=== PATIENT | male | born 1990 | race Caucasian/White ===

== ENCOUNTER 2018-08-29 10:52 | Inpatient (IN) | payer BC ==
[2018-08-29] MEDS ORDERED: Nicotine Inhaler* 10 MG AMP INH PRN (11:51)
[2018-08-29 12:12] LABS: ABS Basophils 0 10^3/ul (0-0.2); ABS Eosinophils 0 10^3/ul (0-0.6); ABS Lymphocytes 2.5 10^3/ul (1.0-4.8); ABS Monocytes 0.4 10^3/ul (0-0.8); ABS Neutrophils 4.4 10^3/ul (1.5-7.7); ABS Nucleated RBC 0 10^3/ul; Eosinophil % 0.2 %; Hematocrit 45 % (42-52); Hemoglobin 15.8 g/dl (14.0-18.0); Lymphocyte % 33.6 %; Mean Corpuscular HGB Conc 35 g/dl (31-36); Mean Corpuscular Hemoglobin 29 pg (27-31); Mean Corpuscular Volume 84 fL (80-94); Mean Platelet Volume 8.2 fL (7.4-10.4); Nucleated Red Blood Cells % 0.1; Platelet Count 269 10^3/ul (150-450); Red Blood Count 5.42 10^6/ul (4.00-5.40); Red Cell Distribution Width 13 % (10.5-15); White Blood Count 7.4 10^3/ul (3.5-10.8)
[2018-08-29 12:40] LABS: ALT 50 U/L (7-52); AST 46 U/L (13-39); Albumin 4.5 g/dL (3.2-5.2); Albumin/Globulin Ratio 1.8 (1-3); Alkaline Phosphatase 124 U/L (34-104); Anion Gap 7 mmol/L (2-11); BUN/Creatinine Ratio 24.7 (8-20); Blood Urea Nitrogen 18 mg/dL (6-24); CO2 Carbon Dioxide 29 mmol/L (22-32); Calcium 9.3 mg/dL (8.6-10.3); Chloride 102 mmol/L (101-111); EGFR African American 155.9 (>60); EGFR Non-African American 128.9 (>60); Globulin 2.5 g/dL (2-4); Glucose 120 mg/dL (70-100); Potassium 3.6 mmol/L (3.5-5.0); Sodium 138 mmol/L (135-145)
[2018-08-29 12:40] LABS: Urine Appearance Clear; Urine Bilirubin Negative (Negative); Urine Blood Negative (Negative); Urine Color Yellow; Urine Glucose Negative (Negative); Urine Ketones Trace (Negative); Urine Nitrite Negative (Negative); Urine Protein Negative (Negative); Urine Specific Gravity 1.019 (1.010-1.030); Urine Urobilinogen Negative (Negative)
[2018-08-29 12:43] LABS: Acetaminophen < 15 mcg/mL; Alcohol < 10 mg/dL (<10); Salicylate < 2.50 mg/dL (<30)
--- NOTE | 2018-08-29 12:46 | ED ---
Psychiatric Complaint - HPI Summary HPI Summary: A 27 y/o male accompanied by a coworker presents to [facility] with a chief complaint of anxiety today. He reports that it is hard to stay positive because he is feeling hypersensitive to negative emotions. He came to the ED for a MHE. He reports that he just want to be able to relax. He denies SI, HI or hallucinations. He reports that when he was younger he had a learning disability and was kicked out of high school multiple times for fighting. He reports that he has not been able to sleep much. He reports a FHx of cardiac disease. - History Of Current Complaint Chief Complaint: EDPsychosocial Time Seen by Provider: 08/29/18 11:38 Hx Obtained From: Patient, Other: - coworker Onset/Duration: Sudden Onset, Lasting Hours, Still Present Timing: Hours Severity Initially: Mild Severity Currently: Mild Character: Manic Aggravating Factor(s): Nothing Alleviating Factor(s): Nothing Associated Signs And Symptoms: Positive: Sleep Disturbance. Negative: Hostile Has Suicidal: Denies: Thoughts Has Homicidal: Denies: Thoughts - Allergies/Home Medications Allergies/Adverse Reactions: Allergies Allergy/AdvReac Type Severity Reaction Status Date / Time No Known Allergies Allergy Verified 08/29/18 11:08 Home Medications: Home Medications NK [No Home Medications Reported] 08/29/18 [History Confirmed 08/29/18] PMH/Surg Hx/FS Hx/Imm Hx Sensory History: Denies: Hx Deafness Psychiatric History: Reports: Hx Anxiety Infectious Disease History: No Infectious Disease History: Denies: Traveled Outside the [place] in Last 30 Days - Family History Known Family History: Positive: Cardiac Disease - Social History Alcohol Use: Occasionally Substance Use Type: Reports: Marijuana Smoking Status (MU): Never Smoked Tobacco Review of Systems Negative: Fever Psychological: Other - negative: SI, HI Positive: Anxious All Other Systems Reviewed And Are Negative: Yes Physical Exam - Summary Physical Exam Summary: GENERAL: Patient is a well-developed and nourished M who is lying comfortable in the stretcher. Patient is not in any acute respiratory distress. HEAD AND FACE: Normocephalic EYES: PERRLA, EOMI x 2. EARS: Hearing grossly intact. MOUTH: Oropharynx within normal limits. NECK: Supple, trachea is midline, no adenopathy, no JVD, no carotid bruit. CHEST: Symmetric, no tenderness at palpation LUNGS: Clear to auscultation bilaterally. No wheezing or crackles. CVS: Regular rate and rhythm, S1 and S2 present, no murmurs or gallops appreciated. ABDOMEN: Soft, non-tender. Bowel sounds are normal. No abdominal abnormal pulsations. EXTREMITIES: Full ROM in all major joints, no edema, no cyanosis or clubbing. NEURO: Alert and oriented x 3. No acute neurological deficits. Speech is normal and follows commands. SKIN: Dry and warm Psych: Racing thoughts, No SI or HI. Triage Information Reviewed: Yes Vital Signs On Initial Exam: Initial Vitals Temp Pulse Resp BP Pulse Ox 97.8 F 78 18 172/110 98 08/29/18 11:04 08/29/18 11:04 08/29/18 11:04 08/29/18 11:04 08/29/18 11:04 Vital Signs Reviewed: Yes Diagnostics - Vital Signs Vital Signs Temp Pulse Resp BP Pulse Ox 08/29/18 11:04 97.8 F 78 18 172/110 98 - Laboratory Lab Results: Lab Results 08/29/18 08/29/18 08/29/18 Range/Units 11:57 11:57 12:17 WBC 7.4 (3.5-10.8) 10^3/ul RBC 5.42 H (4.00-5.40) 10^6/ul Hgb 15.8 (14.0-18.0) g/dl Hct 45 (42-52) % MCV 84 (80-94) fL MCH 29 (27-31) pg MCHC 35 (31-36) g/dl RDW 13 (10.5-15) % Plt Count 269 (150-450) 10^3/ul MPV 8.2 (7.4-10.4) fL Neut % (Auto) 60.1 % Lymph % (Auto) 33.6 % [place] % (Auto) 5.7 % Eos % (Auto) 0.2 % Baso % (Auto) 0.4 % Absolute Neuts (auto) 4.4 (1.5-7.7) 10^3/ul Absolute Lymphs (auto) 2.5 (1.0-4.8) 10^3/ul Absolute Monos (auto) 0.4 (0-0.8) 10^3/ul Absolute Eos (auto) 0 (0-0.6) 10^3/ul Absolute Basos (auto) 0 (0-0.2) 10^3/ul Absolute Nucleated RBC 0 10^3/ul Nucleated RBC % 0.1 Sodium 138 (135-145) mmol/L Potassium 3.6 (3.5-5.0) mmol/L Chloride 102 (101-111) mmol/L Carbon Dioxide 29 (22-32) mmol/L Anion Gap 7 (2-11) mmol/L BUN 18 (6-24) mg/dL Creatinine 0.73 (0.67-1.17) mg/dL Est GFR ( Amer) 155.9 (>60) Est GFR (Non-Af Amer) 128.9 (>60) BUN/Creatinine Ratio 24.7 H (8-20) Glucose 120 H (70-100) mg/dL Calcium 9.3 (8.6-10.3) mg/dL Total Bilirubin 0.90 (0.2-1.0) mg/dL AST 46 H (13-39) U/L ALT 50 (7-52) U/L Alkaline Phosphatase 124 H (34-104) U/L Total Protein 7.0 (6.4-8.9) g/dL Albumin 4.5 (3.2-5.2) g/dL Globulin 2.5 (2-4) g/dL Albumin/Globulin Ratio 1.8 (1-3) TSH Pending Urine Color Yellow Urine Appearance Clear Urine pH 5.0 (5-9) Ur Specific [place] 1.019 (1.010-1.030) Urine Protein Negative (Negative) Urine Ketones Trace A (Negative) Urine Blood Negative (Negative) Urine Nitrate Negative (Negative) Urine Bilirubin Negative (Negative) Urine Urobilinogen Negative (Negative) Ur Leukocyte Esterase Negative (Negative) Urine Glucose Negative (Negative) Salicylates < 2.50 (<30) mg/dL Acetaminophen < 15 mcg/mL Serum Alcohol < 10 (<10) mg/dL Result Diagrams: 08/29/18 11:57 08/29/18 11:57 Lab Statement: Any lab studies that have been ordered have been reviewed, and results considered in the medical decision making process. Re-Evaluation - Re-Evaluation First Eval Re-Evaluation Time: 12:30 Change: Unchanged Comment: Pt cleared for MHE. Course/Dx - Course Course Of Treatment: A 27 y/o male accompanied by a coworker presents to [facility] with a chief complaint of anxiety today. The physical exam revealed that the patient had racing thoughts without SI or HI. In the ED course the patient was given Nicotine INH. Bloodwork, chemistries, urines and toxicology obtained. Urines showed trace urine Ketones and the patient tested presumptive positive for amphetamines and cannabinoids. The patient has been cleared for a MHE. Per Mental health architecture technician, Dr. Vance has decided that the patient will be a voluntary admit. Dx: mood disorder NOS. - Differential Dx/Clinical Impression Provider Diagnosis: Mood disorder - Physician Notifications Discussed Care Of Patient With: John Vance Time Discussed With Above Provider: 15:43 Instructed by Provider To: Other - Per Mental health architecture technician, Dr. Vance has decided that the patient will be a voluntary admit. Dx: mood disorder NOS. Discharge - Sign-Out/Discharge Documenting (check all that apply): Patient Departure - admit Patient Received Moderate/Deep Sedation with Procedure: No - Discharge Plan Condition: Fair [place] [place] Disposition and Condition Condition: FAIR [place] [facility] [place] Attestation Statements Document Initiated by Scribe: Yes Documenting Scribe: Everett Gunderson Provider For Whom Radha is Documenting (Include Credential): Fadumo Coates MD Scribe Attestation: Everett Rivera scribed for Fadumo Coates MD on 08/30/18 at 0912. Scribe Documentation Reviewed: Yes Provider Attestation: The documentation as recorded by the Everett sales accurately reflects the service I personally performed and the decisions made by , Lucille Coates MD Status of Scribe Document: Viewed
[2018-08-29 12:47] LABS: Barbiturates Urine Screen None Detected (None Detect); Benzodiazepine Urine Screen None Detected (None Detect); Urine Cannabinoids Screen Presumptive Positive (None Detect)
[2018-08-29 12:53] LABS: TSH (Thyroid Stimulating Horm) 2.45 mcIU/mL (0.34-5.60)
[2018-08-29] MEDS ORDERED: Nicotine GUM* 2 MG PO PRN (15:21)
[2018-08-29] MEDS ORDERED: Al Hydrox/Mg Hydrox/Simet LIQ* 30 ML UDC PO PRN (15:21)
[2018-08-29] MEDS ORDERED: Mouth Piece, Nicotine* 1 EACH CARTRIDGE INH ONE (17:00)
[2018-08-29] MEDS: hydrOXYzine HCL TAB* 50 MG PO PRN (23:35)
[2018-08-29] MEDS: Haloperidol TAB* 5 MG PO PRN (23:35)
[2018-08-30] MEDS ORDERED: QUEtiapine TAB* 100 MG PO ONE (11:03)
--- NOTE | 2018-08-30 11:10 | HP ---
H&P (Free Text) History and Physical: Justification for admission: Immediate Safety. CC " I want to change the world" The patient was brought to [facility] by his boss Avila Celso. He reported that he has been living at his parents house and things there have been making him upset, but he did not want to share what those things are. He refused to have his parents contacted. He said that he wants to start multiple non profit organizations so that he can get "old many money". He said that he usually walks out of the psychology appointments that his parents bring him to, and doesnt believe in "this psychology stuff." He said " I am a virgin, my friends use me to talk to girls so they dont have to." He denied access to firearms or stockpiles of medications. He reported taking 30mg of adderall daily for the last month that he got from a friend. He reported not sleeping for the last 80 hours. He reported having a diminished appetite. He reported smoking cannabis daily. The patient denied suicidal and or homicidal ideation intent or plan. The patient denied auditory and/ or visual hallucinations. Patient seems like a unreliable historian. He denied chest pain , shortness of breath, fever. Bipolar Reported having many ideas at once. 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 Denied impulsive risky sexual encounters. Patient is irritable, distracted and has trouble concentrating. MDD He reported at times feeling depressed or having diminished interest in hobbies or interests which were present in the past , for most of the time, lasting more than 2 weeks. At times he reported feeling empty inside, feelings of hopelessness or worthless. Anxiety Denied having symptoms of anxiety such as having times where heart feels that it is beating out of chest , sweaty palms, or shallow breathing. Denied having uncomfortable or intrusive thoughts. Denied feeling restless, high strung, or worrying too much most of the time. Psychosis Does not endorse hearing things that other people do not hear or seeing things other people do not see. Denied feeling that TV is making references. He reported feeling unsafe and attributed to not trusting doctors as the cause. Phobias: Patient denied having excessive fear of a particular thing or situation. Eating disorders: Patient denied having excessive eating habits or feelings of guilt after eating. Denied repeated episodes of self induced vomiting after eating. PTSD Denied flashbacks, nightmares and avoidance of a prior traumatic event. PAST PSYCHIATRIC HISTORY: Prior Diagnosis : Denied having past psychiatric history History of past Psychiatric Hospitalizations: No prior psychiatric admission. History of past suicide/homicide attempts : Denied past suicide attempts. Denied past homicidal incidents. Outpatient follow-up: Denied Medications: Denied having past trials of medications Guardianship: None. FAMILY HISTORY: - Suicide: Denied family history of suicide. - Mental illness: Reported depression on his mothers side - Substance abuse: Reported brother with a history of alcohol abuse SUBSTANCE ABUSE HISTORY: Denied using alcohol, tobacco, heroin and cocaine other illicit substances. Uses cannabis daily. Used adderall for a month which was not prescribed to him. Denied past Substance abuse treatment. 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 - Education: Some college at [employer]. Did not graduate. - Living situation: Lives with parents - Legal history: Denied - service history: Denied PAST MEDICAL HISTORY: Denied heart disease, diabetes, cancer and/ or other medical conditions. - Allergies: Denied drug allergies. Reported seasonal allergies Physical Exam: Please see ED note Mental Status Exam on Admission APPEARANCE : 27 year old male who appears stated age. Patient is not malodourous, and appears to have fair hygiene and grooming. BEHAVIOR: Restless EYE CONTACT: Fair PSYCHOMOTOR ACTIVITY: No psychomotor agitation or retardation. MOVEMENTS: No abnormal movements observed. SPEECH : Hyper verbal MOOD : "I am fine " AFFECT :Irritable THOUGHT PROCESS: Formulated in a disorganized way. THOUGHT CONTENT: Paranoid delusions PERCEPTION: No current auditory or visual hallucinations. SUICIDALITY Denied suicidal ideation, intent or plan. HOMICIDALITY Denied homicidal ideation, intent or plan. Insight/judgment: Poor insight and judgment ORIENTATION: Oriented to self, location, and time. Diagnosis on Admission: Bipolar Disorder I ,currently manic Assessment: 27 year old male with no prior psychiatric history of came to the hospital with features of ray. Plan # Justification for Admission: For immediate safety per outlined in the [place] Mental Hygiene Code. #Patient evaluated in ED and was determined by the emergency room Physician to be medically stable for admission to the [facility]. # Voluntary admission. The patient requires inpatient admission at this time to assure safety, receive treatment and work toward stabilization. # Labs ordered: CBC, CMP, UDS, TSH, HBA1c, TSH, Toxicology screen, Urine analysis, and lipid profile. #EKG ordered for risk of QT prolongation of antipsychotic medication. #Admit to [facility], Q15 minute observation. Start regular diet. Encourage participation in activities on the milieu. # Obtain collateral information once release is signed. Refused parents as collateral sources. # Medicine team consulted for abnormal EKG. #Start seroquel 200mg po at night. # Collaboration with Social Work to work toward discharge planning. Substance Abuse resources offered. #Goals before discharge include: Mood stabilization The risks, benefits, and alternative treatment options were discussed as well as of the risks of refusing treatment. After this discussion and an acknowledgement of this understanding was made. A risk/ benefit assessment of treatment was considered and discussed with the patient. When comparing the risks of treatment with the dangers of not receiving treatment, the benefits of treatment outweigh the treatment risks at this time. Risks of suicidal ideation , behavioral changes, dystonia, movement disorders, cardiac conduction changes , serotonin syndrome, metabolic risks and NMS were among some of the risks discussed. Sodium 138 mmol/L (135-145) 08/29/18 11:57 Potassium 3.6 mmol/L (3.5-5.0) 08/29/18 11:57 BUN 18 mg/dL (6-24) 08/29/18 11:57 Creatinine 0.73 mg/dL (0.67-1.17) 08/29/18 11:57 Calcium 9.3 mg/dL (8.6-10.3) 08/29/18 11:57 AST 46 U/L (13-39) H 08/29/18 11:57 ALT 50 U/L (7-52) 08/29/18 11:57 Vital Signs Temp Pulse Resp BP Pulse Ox 98.3 F 76 16 155/77 100 08/29/18 17:06 08/29/18 17:06 08/30/18 01:40 08/29/18 17:06 08/29/18 17:06 Acetaminophen (Tylenol Tab*) 650 mg PO Q4H PRN PRN Reason: for pain; or Temp >101 F Al Hydrox/Mg Hydrox/Simethicone (Maalox Plus*) 30 ml PO Q4H PRN PRN Reason: INDIGESTION Haloperidol (Haldol Tab*) 5 mg PO Q6H PRN PRN Reason: AGITATION Last Admin: 08/29/18 23:35 Dose: 5 mg Hydroxyzine HCl (Atarax Tab*) 50 mg PO Q6H PRN PRN Reason: ANXIETY Last Admin: 08/29/18 23:35 Dose: 50 mg Nicotine (Nicotine Inhaler*) 10 mg INH Q2H PRN PRN Reason: CRAVING Nicotine Polacrilex (Nicotine Gum*) 2 mg PO Q2H PRN PRN Reason: CRAVING Quetiapine Fumarate (Seroquel Xr Tab*) 200 mg PO BEDTIME CAROL
[2018-08-30] MEDS ORDERED: QUEtiapine XR TAB* 200 MG PO SCH (21:00)
[2018-08-31] MEDS: Acetaminophen TAB* 325 MG PO PRN ×2 (01:00→19:50)
[2018-08-31] MEDS: Haloperidol TAB* 5 MG PO PRN (01:00)
[2018-08-31] MEDS: hydrOXYzine HCL TAB* 50 MG PO PRN ×2 (01:01→21:45)
[2018-08-31] MEDS: Divalproex DR TAB(*) 250 MG PO SCH ×2 (12:51→19:49)
--- NOTE | 2018-08-31 13:39 | PN ---
Subjective - Subjective Date of Service: 08/31/18 Service Type: 22816 Hosp care 35 min high complexity Subjective: Nursing Report: Patient was visible on unit, no chemical restraints or PRNs. No behavioral issues CC: "I feel so upset all the time Patient was seen and evaluated in the common room. He said that he is twisted with anger all the time and wants to just have a normal conversation. He began the conversation with "lets have the conversation that we were suppose to have yesterday." The patient reported he feels that he needs space from people because he doesnt want to get caught up in anything. He reported sleeping for 4 hours. He reported having an adequate appetite. The patient denied attending and participating in day groups. He is requesting to use the phone to call his parents. Patient reported that he is tolerating medications without side effects. He denied suicidal ideation, intent or plan. He denied homicidal ideation intent or plan. He denied auditory and or visual hallucinations. Objective - Appearance Appearance: Thin Framed Dysmorphic Features: No Hygiene: Normal Grooming: Fairly Well Kept - Behavior Psychomotor Activities: Abnormal-Increased Exhibits Abnormal Movement: No - Attitude and Relatedness Attitude and Relatedness: Minimally Cooperative Eye Contact: Fair - Speech Quality: Pressured Latencies: Short Quantity: Copious - Mood Patient's Decription of Mood: "Fine" - Affect Observed Affect: Constricted Affect Consistent with: Euphoria - Thought Process Patient's Thought Process: Disorganized Thought Content: No Passive Wish, No Suicidal Planning, No Homicidal Ideation, No Paranoid Ideation - Sensorium Experiencing Hallucinations: No, Sensorium is Clear Type of Hallucinations: Visual: No, Auditory: No, Command: No - Level of Consciousness Level of Consciousness: Alert Orientation: Yes Intact, Yes Orientated to Time, Yes Orientated to Place, Yes Orientated to Person - Impulse Control Impulse Control: Impaired - Insight and Judgement Insight and Judgement: Impaired - Group Participation Particating in Group Activities: No - Medication Management Medication Management Adherence: Yes Assessment - Assessment Merits Inpatient Hospitalization: For Immediate Safety Clinical Impression: 27 year old male with no past psychiatric history presents to the ED with manic features. Plan - Plan Treatment Plan: # Voluntary admission. The patient requires inpatient admission at this time to assure safety, receive treatment and work toward stabilization. #Medicine team contacted to follow up on abnormal EKG #Q15 minute observation # Obtain collateral information once release is signed. Patient in agreement with parents to be source for collateral. #Increase seroquel to 300mg po at night. Start depakote 250mg BID and increase to 500mg BID tomorrow # Collaboration with Social Work to work toward discharge planning. #Goals before discharge include: Mood stabilization Vital Signs 08/31/18 08/31/18 08/31/18 01:00 04:03 08:22 Temperature 98.5 F Pulse Rate 68 Respiratory 20 16 16 Rate Blood Pressure 114/64 (mmHg) O2 Sat by Pulse 97 Oximetry Sodium 138 mmol/L (135-145) 08/29/18 11:57 Potassium 3.6 mmol/L (3.5-5.0) 08/29/18 11:57 BUN 18 mg/dL (6-24) 08/29/18 11:57 Creatinine 0.73 mg/dL (0.67-1.17) 08/29/18 11:57 Calcium 9.3 mg/dL (8.6-10.3) 08/29/18 11:57 AST 46 U/L (13-39) H 08/29/18 11:57 ALT 50 U/L (7-52) 08/29/18 11:57 Acetaminophen (Tylenol Tab*) 650 mg PO Q4H PRN PRN Reason: for pain; or Temp >101 F Last Admin: 08/31/18 01:00 Dose: 650 mg Al Hydrox/Mg Hydrox/Simethicone (Maalox Plus*) 30 ml PO Q4H PRN PRN Reason: INDIGESTION Divalproex Sodium (Depakote Dr Tab(*)) 250 mg PO BID CAROL Last Admin: 08/31/18 12:51 Dose: 250 mg Haloperidol (Haldol Tab*) 5 mg PO Q6H PRN PRN Reason: AGITATION Last Admin: 08/31/18 01:00 Dose: 5 mg Hydroxyzine HCl (Atarax Tab*) 50 mg PO Q6H PRN PRN Reason: ANXIETY Last Admin: 08/31/18 01:01 Dose: 50 mg Lorazepam (Ativan Tab(*)) 1 mg PO ONCE ONE Stop: 08/31/18 14:36 Quetiapine Fumarate (Seroquel Xr Tab*) 300 mg PO BEDTIME CAROL Continued Medication Management: Continue Outpt Medication Medications: Current Medications Acetaminophen (Tylenol Tab*) 650 mg PO Q4H PRN PRN Reason: for pain; or Temp >101 F Last Admin: 08/31/18 01:00 Dose: 650 mg Al Hydrox/Mg Hydrox/Simethicone (Maalox Plus*) 30 ml PO Q4H PRN PRN Reason: INDIGESTION Divalproex Sodium (Depakote Dr Tab(*)) 250 mg PO BID CAROL Last Admin: 08/31/18 12:51 Dose: 250 mg Haloperidol (Haldol Tab*) 5 mg PO Q6H PRN PRN Reason: AGITATION Last Admin: 08/31/18 01:00 Dose: 5 mg Hydroxyzine HCl (Atarax Tab*) 50 mg PO Q6H PRN PRN Reason: ANXIETY Last Admin: 08/31/18 01:01 Dose: 50 mg Quetiapine Fumarate (Seroquel Xr Tab*) 300 mg PO BEDTIME [facility] - Discharge Plan Discharge Plan: Inpatient Hospitalization
[2018-08-31] MEDS ORDERED: hydrOXYzine HCL TAB* 25 MG PO PRN (14:34)
[2018-08-31] MEDS ORDERED: LORazepam TAB(*) 1 MG PO ONE (14:35)
--- NOTE | 2018-08-31 15:32 | CONSULT ---
Subjective Date of Service: 08/31/18 Interval History: Reason for consult: abnormal EKG Requesting physician: Dr. Rene Herman Ac Sanchez is a 27 yo male without significant PMHx who was admitted to the behavioral services unit on 08/29/18 for mood stabilization. During his treatment , an EKG was ordered to rule out QTc prolongation prior to prescribing an antipsychotic. Dr. Marcus requested hospital medicine consult due to abnormal EKG findings. Patient is hopeful to be discharged from [facility] soon. He has no chronic medical conditions and does not take any medicine prescribed to him. He does mention that he is "afraid of doctors." He denies fever, chest pain, dysnpea on exertion or otherwise, jaw pain, and arm pain. Family History: Findings - Father and mother are both living and without chronic medical conditions, including HTN, CAD, or DM. Maternal grandfather of [place] at unknown age to pt. Social History: Findings - Patient smokes marijuana "occasionally." Patient takes adderall that is not prescribed daily, which he has been doing for approximately 9 months. Patient denies tobacco use, alcohol use, cocaine use, and other illicit drug use. 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 He lives with his parents. Past Medical History: Findings - None Review of Systems - Measurements Intake and Output: Intake and Output Last 24 Hours 08/29/18 08/30/18 08/31/18 09/01/18 06:59 06:59 06:59 06:59 Weight 150 lb - Review of Systems Constitutional Symptoms: Negative: Fatigue Dermatology: Positive: Normal HEENT: Positive: Normal Eyes: Positive: Normal Thyroid: Positive: Normal Pulmonary: Positive: Normal Negative: Respiratory Distress, Shortness of Breath, Exercise Intolerance Cardiology: Positive: Normal Negative: Chest Pain, Shortness of Breath, Edema, Syncope Gastroenterology: Positive: Normal Genital - Urinary: Positive: Normal Musculoskeletal: Positive: Joint Pain Endocrinology: Positive: Normal Neurology: Positive: Normal Negative: Dizziness Psychiatry: Positive: Anxiety - "feeling angry", Other Objective Active Medications: Acetaminophen (Tylenol Tab*) 650 mg PO Q4H PRN PRN Reason: for pain; or Temp >101 F Last Admin: 08/31/18 01:00 Dose: 650 mg Al Hydrox/Mg Hydrox/Simethicone (Maalox Plus*) 30 ml PO Q4H PRN PRN Reason: INDIGESTION Divalproex Sodium (Depakote Dr Tab(*)) 250 mg PO BID CAROL Last Admin: 08/31/18 12:51 Dose: 250 mg Haloperidol (Haldol Tab*) 5 mg PO Q6H PRN PRN Reason: AGITATION Last Admin: 08/31/18 01:00 Dose: 5 mg Hydroxyzine HCl (Atarax Tab*) 50 mg PO Q6H PRN PRN Reason: ANXIETY Last Admin: 08/31/18 01:01 Dose: 50 mg Quetiapine Fumarate (Seroquel Xr Tab*) 300 mg PO BEDTIME [facility] Vital Signs - 8 hr 08/31/18 08/31/18 08/31/18 08:22 14:42 14:53 Temperature 98.5 F Pulse Rate 68 Respiratory 16 18 16 Rate Blood Pressure 114/64 (mmHg) O2 Sat by Pulse 97 Oximetry Oxygen Devices in Use Now: None Appearance: Young, thin male appearing in NAD; cooperative with exam Eyes: No Scleral Icterus, PERRLA Ears/Nose/Mouth/Throat: Mucous Membranes Moist Neck: NL Appearance and Movements; NL JVP, - - no carotid bruits Respiratory: Symmetrical Chest Expansion and Respiratory Effort, Clear to Auscultation Cardiovascular: NL Sounds; No Murmurs; No JVD, RRR Abdominal: - - abdomen soft and without tenderness to palpation Lymphatic: No Cervical Adenopathy Extremities: No Edema, No Clubbing, Cyanosis, - - no calf tenderness Skin: No Rash or Ulcers Neurological: Alert and Oriented x 3, NL Gait, NL Muscle Strength and Tone Result Diagrams: 08/29/18 11:57 08/29/18 11:57 Additional Lab and Data: Lab Results 08/29/18 08/29/18 08/29/18 Range/Units 11:57 11:57 12:17 WBC 7.4 (3.5-10.8) 10^3/ul RBC 5.42 H (4.00-5.40) 10^6/ul Hgb 15.8 (14.0-18.0) g/dl Hct 45 (42-52) % MCV 84 (80-94) fL MCH 29 (27-31) pg MCHC 35 (31-36) g/dl RDW 13 (10.5-15) % Plt Count 269 (150-450) 10^3/ul MPV 8.2 (7.4-10.4) fL Neut % (Auto) 60.1 % Lymph % (Auto) 33.6 % [place] % (Auto) 5.7 % Eos % (Auto) 0.2 % Baso % (Auto) 0.4 % Absolute Neuts (auto) 4.4 (1.5-7.7) 10^3/ul Absolute Lymphs (auto) 2.5 (1.0-4.8) 10^3/ul Absolute Monos (auto) 0.4 (0-0.8) 10^3/ul Absolute Eos (auto) 0 (0-0.6) 10^3/ul Absolute Basos (auto) 0 (0-0.2) 10^3/ul Absolute Nucleated RBC 0 10^3/ul Nucleated RBC % 0.1 Sodium 138 (135-145) mmol/L Potassium 3.6 (3.5-5.0) mmol/L Chloride 102 (101-111) mmol/L Carbon Dioxide 29 (22-32) mmol/L Anion Gap 7 (2-11) mmol/L BUN 18 (6-24) mg/dL Creatinine 0.73 (0.67-1.17) mg/dL Est GFR ( Amer) 155.9 (>60) Est GFR (Non-Af Amer) 128.9 (>60) BUN/Creatinine Ratio 24.7 H (8-20) Glucose 120 H (70-100) mg/dL Calcium 9.3 (8.6-10.3) mg/dL Total Bilirubin 0.90 (0.2-1.0) mg/dL AST 46 H (13-39) U/L ALT 50 (7-52) U/L Alkaline Phosphatase 124 H (34-104) U/L Total Protein 7.0 (6.4-8.9) g/dL Albumin 4.5 (3.2-5.2) g/dL Globulin 2.5 (2-4) g/dL Albumin/Globulin Ratio 1.8 (1-3) TSH Pending Urine Color Yellow Urine Appearance Clear Urine pH 5.0 (5-9) Ur Specific [place] 1.019 (1.010-1.030) Urine Protein Negative (Negative) Urine Ketones Trace A (Negative) Urine Blood Negative (Negative) Urine Nitrate Negative (Negative) Urine Bilirubin Negative (Negative) Urine Urobilinogen Negative (Negative) Ur Leukocyte Esterase Negative (Negative) Urine Glucose Negative (Negative) Salicylates < 2.50 (<30) mg/dL Acetaminophen < 15 mcg/mL Serum Alcohol < 10 (<10) mg/dL EKG Data: 86 bpm, ST elevations in the anterior leads, borderline QT prolongation at 468 Assessment/Plan - Billing Plan By Medical Problem: 27 yo male without significant PMHx presents to ED with features of ray and was admitted to the [facility] for mood stabilization for likely bipolar disorder. During his hospitalization, an EKG was ordered prior to prescribing antipsychotics and abnormal findings were noted. 1. Abnormal EKG -EKG reviewed; ST elevations in anterior leads are suggestive of J point -patient is not exhibiting cardiac symptoms, which makes risk of CAD or pericarditis unlikely -patient does not have personal or familial risks for CAD -pt has poor follow up with his PCP because he is "afraid of doctors" -echo is recommended while inpatient to r/o underlying pathology as patient is unlikely to follow up for outpatient testing VTE PPX: Pt is DVT risk of 0 Ambulate ad daren Diet: Regular Code Status: Full code Admission Status and Rationale: Mood stabilization in B[facility]
[2018-08-31] MEDS: QUEtiapine XR TAB* 300 MG PO SCH (19:49)
[2018-09-01 08:31] LABS: HDL Cholesterol 38.1 mg/dL
[2018-09-01] MEDS ORDERED: Divalproex ER TAB(*) 250 MG PO ONE (09:52)
[2018-09-01] MEDS ORDERED: Divalproex DR TAB(*) 250 MG PO ONE (10:42)
[2018-09-01] MEDS: Divalproex DR TAB(*) 250 MG PO SCH ×2 (11:12→20:10)
--- NOTE | 2018-09-01 12:33 | PN ---
Subjective - Subjective Date of Service: 09/01/18 Service Type: 29515 Hosp care 35 min high complexity Subjective: Nursing Report: Patient was visible on unit, no chemical restraints or PRNs. No behavioral issues CC: "You can talk to my brother Patient was seen and evaluated in the common room. He said that he got 8 hours of sleep overnight. The patient reported that he plans to move out of his parents and live with a friend. He reported having an adequate appetite. 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 Patient reported that he is tolerating medications without side effects. He denied suicidal ideation, intent or plan. He denied homicidal ideation intent or plan. He denied auditory and or visual hallucinations. Collateral information from his brother was obtained and revealed that he has been going to work daily and often stays up late and defies his parents. His brother added that if he is discharged he will pick him up and can assure his safety. Objective - Appearance Appearance: Healthy Appearing Dysmorphic Features: No Hygiene: Normal Grooming: Fairly Well Kept - Behavior Psychomotor Activities: Normal Exhibits Abnormal Movement: No - Attitude and Relatedness Attitude and Relatedness: Cooperative Eye Contact: Fair - Speech Quality: Pressured Latencies: Normal Quantity: Copious - Mood Patient's Decription of Mood: "Okay" - Affect Observed Affect: Expansive Affect Consistent with: Euphoria - Thought Process Patient's Thought Process: Coherent Thought Content: No Passive Wish, No Suicidal Planning, No Homicidal Ideation, No Paranoid Ideation - Sensorium Experiencing Hallucinations: No, Sensorium is Clear Type of Hallucinations: Visual: No, Auditory: No, Command: No - Level of Consciousness Level of Consciousness: Alert Orientation: Yes Intact, Yes Orientated to Time, Yes Orientated to Place, Yes Orientated to Person - Impulse Control Impulse Control: Tenuous - Insight and Judgement Insight and Judgement: Fair - Group Participation Particating in Group Activities: Yes - Medication Management Medication Management Adherence: Yes Assessment - Assessment Merits Inpatient Hospitalization: For Stabilization Clinical Impression: 27 year old male with no past psychiatric history presents to the ED with features of ray and since admission has shown good response to treatment Plan - Plan Treatment Plan: # Voluntary admission. The patient requires inpatient admission at this time to assure safety, receive treatment and work toward stabilization. #ECHO completed today #Q15 minute observation # Obtain collateral information once release is signed. Patient in agreement with parents to be source for collateral. #Continue seroquel to 300mg po at night. #Increase valproic acid to 500mg BID #Depakote level tomorrow. #Possible discharge tomorrow # Collaboration with Social Work to work toward discharge planning. #Goals before discharge include: Mood stabilization #MMPI Sodium 138 mmol/L (135-145) 08/29/18 11:57 Potassium 3.6 mmol/L (3.5-5.0) 08/29/18 11:57 BUN 18 mg/dL (6-24) 08/29/18 11:57 Creatinine 0.73 mg/dL (0.67-1.17) 08/29/18 11:57 Hemoglobin A1c 5.2 % (4.0-5.6) 09/01/18 07:53 Calcium 9.3 mg/dL (8.6-10.3) 08/29/18 11:57 AST 46 U/L (13-39) H 08/29/18 11:57 ALT 50 U/L (7-52) 08/29/18 11:57 Triglycerides 103 mg/dL 09/01/18 07:53 Cholesterol 115 mg/dL 09/01/18 07:53 LDL Cholesterol 56 mg/dL 09/01/18 07:53 Vital Signs Temp Pulse Resp BP Pulse Ox 97.8 F 72 16 111/63 98 09/01/18 08:47 09/01/18 08:47 09/01/18 12:58 09/01/18 08:47 09/01/18 08:47 Acetaminophen (Tylenol Tab*) 650 mg PO Q4H PRN PRN Reason: for pain; or Temp >101 F Last Admin: 08/31/18 19:50 Dose: 650 mg Al Hydrox/Mg Hydrox/Simethicone (Maalox Plus*) 30 ml PO Q4H PRN PRN Reason: INDIGESTION Divalproex Sodium (Depakote Dr Tab(*)) 500 mg PO BID CAROL Haloperidol (Haldol Tab*) 5 mg PO Q6H PRN PRN Reason: AGITATION Last Admin: 08/31/18 01:00 Dose: 5 mg Hydroxyzine HCl (Atarax Tab*) 50 mg PO Q6H PRN PRN Reason: ANXIETY Last Admin: 08/31/18 21:45 Dose: 50 mg Quetiapine Fumarate (Seroquel Xr Tab*) 300 mg PO BEDTIME CAROL Last Admin: 08/31/18 19:49 Dose: 300 mg Continued Medication Management: Continue Outpt Medication Medications: Current Medications Acetaminophen (Tylenol Tab*) 650 mg PO Q4H PRN PRN Reason: for pain; or Temp >101 F Last Admin: 08/31/18 19:50 Dose: 650 mg Al Hydrox/Mg Hydrox/Simethicone (Maalox Plus*) 30 ml PO Q4H PRN PRN Reason: INDIGESTION Divalproex Sodium (Depakote Dr Tab(*)) 500 mg PO BID CAROL Haloperidol (Haldol Tab*) 5 mg PO Q6H PRN PRN Reason: AGITATION Last Admin: 08/31/18 01:00 Dose: 5 mg Hydroxyzine HCl (Atarax Tab*) 50 mg PO Q6H PRN PRN Reason: ANXIETY Last Admin: 08/31/18 21:45 Dose: 50 mg Quetiapine Fumarate (Seroquel Xr Tab*) 300 mg PO BEDTIME CAROL Last Admin: 08/31/18 19:49 Dose: 300 mg - Discharge Plan Discharge Plan: Inpatient Hospitalization
--- NOTE | 2018-09-01 15:05 | PN ---
Subjective Date of Service: 09/01/18 Interval History: Patient is feeling well. He is still hopeful to be dismissed soon. Denies fever , chills, shortness of breath, and chest pain. Family History: Findings - Father and mother are both living and without chronic medical conditions, including HTN, CAD, or DM. Maternal grandfather of [place] at unknown age to pt. Social History: Findings - Patient smokes marijuana "occasionally." Patient takes adderall that is not prescribed daily, which he has been doing for approximately 9 months. Patient denies tobacco use, alcohol use, cocaine use, and other illicit drug use. 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 He lives with his parents. Past Medical History: Findings - None Objective Active Medications: Acetaminophen (Tylenol Tab*) 650 mg PO Q4H PRN PRN Reason: for pain; or Temp >101 F Last Admin: 08/31/18 19:50 Dose: 650 mg Al Hydrox/Mg Hydrox/Simethicone (Maalox Plus*) 30 ml PO Q4H PRN PRN Reason: INDIGESTION Divalproex Sodium (Depakote Dr Tab(*)) 500 mg PO BID CAROL Haloperidol (Haldol Tab*) 5 mg PO Q6H PRN PRN Reason: AGITATION Last Admin: 08/31/18 01:00 Dose: 5 mg Hydroxyzine HCl (Atarax Tab*) 50 mg PO Q6H PRN PRN Reason: ANXIETY Last Admin: 08/31/18 21:45 Dose: 50 mg Quetiapine Fumarate (Seroquel Xr Tab*) 300 mg PO BEDTIME CAROL Last Admin: 08/31/18 19:49 Dose: 300 mg Vital Signs - 8 hr 09/01/18 09/01/18 08:47 12:58 Temperature 97.8 F Pulse Rate 72 Respiratory 16 16 Rate Blood Pressure 111/63 (mmHg) O2 Sat by Pulse 98 Oximetry Oxygen Devices in Use Now: None Appearance: Thin, young male appearing in NAD Eyes: No Scleral Icterus, PERRLA Ears/Nose/Mouth/Throat: Mucous Membranes Moist Neck: NL Appearance and Movements; NL JVP Respiratory: Symmetrical Chest Expansion and Respiratory Effort, Clear to Auscultation Cardiovascular: NL Sounds; No Murmurs; No JVD, RRR Abdominal: - - abdomen soft Lymphatic: No Cervical Adenopathy Extremities: No Edema, No Clubbing, Cyanosis, - - no calf tenderness Skin: No Rash or Ulcers Neurological: Alert and Oriented x 3, NL Gait, NL Muscle Strength and Tone Result Diagrams: 08/29/18 11:57 08/29/18 11:57 Additional Lab and Data: Lab Results 08/29/18 08/29/18 08/29/18 Range/Units 11:57 11:57 12:17 WBC 7.4 (3.5-10.8) 10^3/ul RBC 5.42 H (4.00-5.40) 10^6/ul Hgb 15.8 (14.0-18.0) g/dl Hct 45 (42-52) % MCV 84 (80-94) fL MCH 29 (27-31) pg MCHC 35 (31-36) g/dl RDW 13 (10.5-15) % Plt Count 269 (150-450) 10^3/ul MPV 8.2 (7.4-10.4) fL Neut % (Auto) 60.1 % Lymph % (Auto) 33.6 % [place] % (Auto) 5.7 % Eos % (Auto) 0.2 % Baso % (Auto) 0.4 % Absolute Neuts (auto) 4.4 (1.5-7.7) 10^3/ul Absolute Lymphs (auto) 2.5 (1.0-4.8) 10^3/ul Absolute Monos (auto) 0.4 (0-0.8) 10^3/ul Absolute Eos (auto) 0 (0-0.6) 10^3/ul Absolute Basos (auto) 0 (0-0.2) 10^3/ul Absolute Nucleated RBC 0 10^3/ul Nucleated RBC % 0.1 Sodium 138 (135-145) mmol/L Potassium 3.6 (3.5-5.0) mmol/L Chloride 102 (101-111) mmol/L Carbon Dioxide 29 (22-32) mmol/L Anion Gap 7 (2-11) mmol/L BUN 18 (6-24) mg/dL Creatinine 0.73 (0.67-1.17) mg/dL Est GFR ( Amer) 155.9 (>60) Est GFR (Non-Af Amer) 128.9 (>60) BUN/Creatinine Ratio 24.7 H (8-20) Glucose 120 H (70-100) mg/dL Calcium 9.3 (8.6-10.3) mg/dL Total Bilirubin 0.90 (0.2-1.0) mg/dL AST 46 H (13-39) U/L ALT 50 (7-52) U/L Alkaline Phosphatase 124 H (34-104) U/L Total Protein 7.0 (6.4-8.9) g/dL Albumin 4.5 (3.2-5.2) g/dL Globulin 2.5 (2-4) g/dL Albumin/Globulin Ratio 1.8 (1-3) TSH Pending Urine Color Yellow Urine Appearance Clear Urine pH 5.0 (5-9) Ur Specific [place] 1.019 (1.010-1.030) Urine Protein Negative (Negative) Urine Ketones Trace A (Negative) Urine Blood Negative (Negative) Urine Nitrate Negative (Negative) Urine Bilirubin Negative (Negative) Urine Urobilinogen Negative (Negative) Ur Leukocyte Esterase Negative (Negative) Urine Glucose Negative (Negative) Salicylates < 2.50 (<30) mg/dL Acetaminophen < 15 mcg/mL Serum Alcohol < 10 (<10) mg/dL EKG Data: 86 bpm, ST elevations in the anterior leads, borderline QT prolongation at 468 Assess/Plan/Problems-Billing Plan By Medical Problem: 27 yo male without significant PMHx presents to ED with features of sary and was admitted to the [facility] for mood stabilization for likely bipolar disorder. During his hospitalization, an EKG was ordered prior to prescribing antipsychotics and abnormal findings were noted. - Patient Problems (1) Abnormal EKG Code(s): R94.31 - ABNORMAL ELECTROCARDIOGRAM [ECG] [EKG] SNOMED Code(s): 977162341 Comment: -EKG findings of ST elevation, consistent with J point -EKG findings of borderline QT elevation of 468 -awaiting results of echo -pt continues to be without cardiac symptoms, which is reassuring (2) Sary Code(s): F30.9 - MANIC EPISODE, UNSPECIFIED SNOMED Code(s): 457281563 Comment: -management as per psychiatric care in B[facility] (3) DVT prophylaxis Code(s): ZJK3739 - SNOMED Code(s): 192448479 Comment: -DVT risk of 0 -ambulating ad daren (4) Full code status Code(s): Z78.9 - OTHER SPECIFIED HEALTH STATUS SNOMED Code(s): 132664403
--- NOTE | 2018-09-01 15:24 | ECHO ---
Patient: ROLAND ELLIOTT [facility] Rec#: [id number] : 1990 Date: 09/01/2018 Age: 27y Height: 185.42 cm / 73.0 in Weight: 67.59 kg / 149.0 lbs Sex: M BSA: 1.9 Room#: 207 2 Admit Date#: 08/29/2018 Type: Inpatient Referring: Peggy Lindsey Reading: Tk Teran MD Amplifier Mechanic: Rupal Ferris RDCS,RDMS CC: Rene Antonio MD Transthoracic Echocardiogram Indication: ABN EKG BP: 114/65 HR: 66 Rhythm: NSR Findings History: Previously healthy Technical Comments: The study quality is fair. Left Ventricle: The left ventricular chamber size is normal. There is no left ventricular hypertrophy. Global left ventricular wall motion and contractility are within normal limits. The estimated ejection fraction is 55-60%. Normal left ventricular diastolic filling is observed. Left Atrium: The left atrial chamber size is normal. Right Ventricle: The right ventricular chamber size and systolic function are within normal limits. Right Atrium: The right atrial cavity size is normal. Aortic Valve: The aortic valve is trileaflet. Systolic excursion of the aortic valve is normal. There is no evidence of aortic regurgitation. There is no evidence of aortic stenosis. Mitral Valve: The mitral valve leaflets appear normal. There is a trace of mitral regurgitation. There is no evidence of mitral stenosis. Tricuspid Valve: The tricuspid valve leaflets are normal. There is trace tricuspid regurgitation. Unable to estimate the right ventricular systolic pressure. Pulmonic Valve: The pulmonic valve appears normal. There is trace to mild pulmonic regurgitation. Pericardium: There is no significant pericardial effusion. Aorta: The aortic root appears normal. There is no dilatation of the aortic arch. Pulmonary Artery: The main pulmonary artery appears normal. Venous: The inferior vena cava appears normal in size. There is a greater than 50% respiratory change in the inferior vena cava dimension. Summary: There was not any prior study for comparison. Conclusions The left ventricular chamber size is normal. The estimated ejection fraction is 55-60%. There is a trace of mitral regurgitation. There is trace tricuspid regurgitation. There is trace to mild pulmonic regurgitation. Measurements Name Value Normal Range RVIDd (AP) 2D 1.9 cm (0.9 - 2.6) RVDdMajor (2D) 2.2 cm (2.2 - 4.4) RAd ISD 4CH 3.6 cm (3.4 - 4.9) RA (A4C)W 3.3 cm (2.9 - 4.6) IVSd (2D) 0.9 cm (0.6 - 1) LVPWd (2D) 1 cm (0.6 - 1) LVIDd (2D) 5.1 cm (3.6 - 5.4) LVIDs (2D) 3.3 cm - LV FS (2D) 36 % (25 - 45) Aortic Annulus 2.2 cm (1.4 - 2.6) Ao root diameter (2D) 3 cm (2.1 - 3.5) Ascending Ao 2.6 cm (2.1 - 3.4) Aortic arch 3.2 cm (1.8 - 3.4) LA dimension (AP) 2D 2.4 cm (2.3 - 3.8) LAd ISD 4CH 3 cm (2.9 - 5.3) LA ISD 4CH W 2.8 cm (2.5 - 4.5) Name Value Normal Range LA ESV SP 4CH (A/L) 15.43 ml - LA ESV SP 2CH (A/L) 17.76 ml - LA ESV BP (A/L) 18.37 ml - LA ESV BP (A/L) index 10 ml/m2 - LA ESV SP 4CH (MOD) 11.99 ml - LA ESV SP 2CH (MOD) 14.6 ml - Name Value Normal Range MV E-wave Vmax 0.5 m/sec - MV deceleration time 217 msec - MV A-wave Vmax 0.4 m/sec - MV E:A ratio 1.3 ratio - LV septal e' Vmax 0.08 m/sec - LV lateral e' Vmax 0.09 m/sec - LV E:e' septal ratio 6 ratio - LV E:e' lateral ratio 6 ratio - Name Value Normal Range AV Vmax 1 m/sec - AV VTI 19 cm - AV peak gradient 4 mmHg - AV mean gradient 2.3 mmHg - LVOT Vmax 1 m/sec - LVOT VTI 16 cm - LVOT peak gradient 4 mmHg - LVOT mean gradient 1.9 mmHg - DILIA Vmax 1.1 m/sec - Name Value Normal Range RAP 8 mmHg - IVC diameter 0.9 cm - Name Value Normal Range PV Vmax 0.6 m/sec - PV peak gradient 1.4 mmHg -
[2018-09-01] MEDS: Acetaminophen TAB* 325 MG PO PRN (15:28)
[2018-09-01] MEDS: hydrOXYzine HCL TAB* 50 MG PO PRN (17:27)
[2018-09-01] MEDS: QUEtiapine XR TAB* 300 MG PO SCH (20:09)
[2018-09-02] MEDS: hydrOXYzine HCL TAB* 50 MG PO PRN ×2 (03:24→09:14)
[2018-09-02] MEDS: Haloperidol TAB* 5 MG PO PRN (03:24)
[2018-09-02] MEDS: Divalproex DR TAB(*) 250 MG PO SCH (09:14)
[2018-09-02] MEDS: Acetaminophen TAB* 325 MG PO PRN (09:58)
[2018-09-02 10:17] VITALS: BP 135/84
--- NOTE | 2018-09-02 10:56 | DS ---
Subjective - Subjective Service Types: [id number] [facility] Day [facility]mt complex over 30 min Discharge Date: 09/02/18 Subjective: CC: " I am good" Patient reported he is ready to go home. He reported sleeping 8 hours overnight. No overnight incidents per staff report. He completed MMPI yesterday. He ate breakfast and has been interacting with peers. He plans to have his brother pick him up today. He looks forward to moving to a friends house over the weekend and spending time with his brother. The patient denied suicidal ideations , intent or plans. The patient denied homicidal targets, ideations, intents or plans. Justification for admission: Immediate Safety. CC " I want to change the world" The patient was brought to [facility] by his boss [employer] Houston. He reported that he has been living at his parents house and things there have been making him upset, but he did not want to share what those things are. He refused to have his parents contacted. He said that he wants to start multiple non profit organizations so that he can get "old many money". He said that he usually walks out of the psychology appointments that his parents bring him to, and doesnt believe in "this psychology stuff." He said " I am a virgin, my friends use me to talk to girls so they dont have to." He denied access to firearms or stockpiles of medications. He reported taking 30mg of adderall daily for the last month that he got from a friend. He reported not sleeping for the last 80 hours. He reported having a diminished appetite. He reported smoking cannabis daily. The patient denied suicidal and or homicidal ideation intent or plan. The patient denied auditory and/ or visual hallucinations. Patient seems like a unreliable historian. He denied chest pain , shortness of breath, fever. Bipolar Reported having many ideas at once. 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 Denied impulsive risky sexual encounters. Patient is irritable, distracted and has trouble concentrating. MDD He reported at times feeling depressed or having diminished interest in hobbies or interests which were present in the past , for most of the time, lasting more than 2 weeks. At times he reported feeling empty inside, feelings of hopelessness or worthless. Anxiety Denied having symptoms of anxiety such as having times where heart feels that it is beating out of chest , sweaty palms, or shallow breathing. Denied having uncomfortable or intrusive thoughts. Denied feeling restless, high strung, or worrying too much most of the time. Psychosis Does not endorse hearing things that other people do not hear or seeing things other people do not see. Denied feeling that TV is making references. He reported feeling unsafe and attributed to not trusting doctors as the cause. Phobias: Patient denied having excessive fear of a particular thing or situation. Eating disorders: Patient denied having excessive eating habits or feelings of guilt after eating. Denied repeated episodes of self induced vomiting after eating. PTSD Denied flashbacks, nightmares and avoidance of a prior traumatic event. PAST PSYCHIATRIC HISTORY: Prior Diagnosis : Denied having past psychiatric history History of past Psychiatric Hospitalizations: No prior psychiatric admission. History of past suicide/homicide attempts : Denied past suicide attempts. Denied past homicidal incidents. Outpatient follow-up: Denied Medications: Denied having past trials of medications Guardianship: None. FAMILY HISTORY: - Suicide: Denied family history of suicide. - Mental illness: Reported depression on his mothers side - Substance abuse: Reported brother with a history of alcohol abuse SUBSTANCE ABUSE HISTORY: Denied using alcohol, tobacco, heroin and cocaine other illicit substances. Uses cannabis daily. Used adderall for a month which was not prescribed to him. Denied past Substance abuse treatment. 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 - Education: Some college at [employer]. Did not graduate. - Living situation: Lives with parents - Legal history: Denied - service history: Denied PAST MEDICAL HISTORY: Denied heart disease, diabetes, cancer and/ or other medical conditions. - Allergies: Denied drug allergies. Reported seasonal allergies Physical Exam: Please see ED note Mental Status Exam on Admission APPEARANCE : 27 year old male who appears stated age. Patient is not malodourous, and appears to have fair hygiene and grooming. BEHAVIOR: Restless EYE CONTACT: Fair PSYCHOMOTOR ACTIVITY: No psychomotor agitation or retardation. MOVEMENTS: No abnormal movements observed. SPEECH : Hyper verbal MOOD : "I am fine " AFFECT :Irritable THOUGHT PROCESS: Formulated in a disorganized way. THOUGHT CONTENT: Paranoid delusions PERCEPTION: No current auditory or visual hallucinations. SUICIDALITY Denied suicidal ideation, intent or plan. HOMICIDALITY Denied homicidal ideation, intent or plan. Insight/judgment: Poor insight and judgment ORIENTATION: Oriented to self, location, and time. Diagnosis on Admission: Bipolar Disorder I ,currently manic Diagnosis on Discharge: Bipolar II disorder Condition at the time of discharge: At the time of discharge patient showed improvement of sleep and appetite. The patient was not a danger to self or others. The patient denied suicidal ideations , intent or plans. The patient denied homicidal targets, ideations, intents or plans. This patient participated in psychosocial rehabilitation and gained some insight into problems. The patient gained insight into mental illness, triggers, and treatment. The patient took medication as prescribed. The patient denied side effects of medication and objective signs of side effects were not evident. Therapy Resources were offered to the patient. Patient was given a supply of prescriptions at the time of discharge. The patient plans to attend follow up care with the follow up arrangements that were discussed and put in place. Patient was asked to keep appointments as scheduled, take medication as prescribed, have routine follow up care with their primary care physician and refrain from any use of alcohol or drugs. Objective - Appearance Appearance: Healthy Appearing Dysmorphic Features: No Hygiene: Normal Grooming: Fairly Well Kept - Behavior Psychomotor Activities: Normal Exhibits Abnormal Movement: No - Attitude and Relatedness Attitude and Relatedness: Cooperative Eye Contact: Fair - Speech Quality: Unpressured Latencies: Normal Quantity: Appropriate - Mood Patient's Decription of Mood: "Okay" - Affect Observed Affect: Non-labile Affect Consistent with: Euthymia - Thought Process Patient's Thought Process: Goal Directed Thought Content: No Passive Wish, No Suicidal Planning, No Homicidal Ideation, No Paranoid Ideation - Sensorium Experiencing Hallucinations: No, Sensorium is Clear Type of Hallucinations: Visual: No, Auditory: No, Command: No - Level of Consciousness Level of Consciousness: Alert Orientation: Yes Intact, Yes Orientated to Time, Yes Orientated to Place, Yes Orientated to Person - Impulse Control Impulse Control: Tenuous - Insight and Judgement Insight and Judgement: Fair - Group Participation Particating in Group Activities: No - Medication Management Medication Management Adherence: Yes Treatment Course & Assessment Clinical Course & Impression: 27 year old male with no past psychiatric history presents to the ED with features of ray and since admission has shown good response to treatment Hospital course part A: 27 year old male patient who features of hypomania showing a good response to treatment. Hospital course part B: Labs ordered included CBC, CMP, UDS, TSH, HBA1c, TSH, Toxicology screen, Urine analysis, and lipid profile. Depakote level. Labs were reviewed and did not require the need for further evaluation. Vital signs were monitored during the course of admission. Valproic acid level was 54. MMPI was ordered and indicated features of hypomania. EKG ordered for risk of QT prolongation of antipsychotic medication. EKG was reviewed and abnormal findings were present. A consult to hospitalist was made and Cardiac ECHO performed showing trace mitral, tricuspid, and pulmonic regurgitation. Patient advised to follow up on the outpatient basis. The patient was admitted to the adult behavioral unit and placed on 15 minute check for safety. With those limits being extended , there were no occurrence of behavioral incidents. The patient did well on the unit and went to groups. Interacted with peers had adequate sleep and regular appetite. Tolerated medication changes without side effects. Group therapy and services were offered. The risks, benefits, and alternative treatment options were discussed as well as of the risks of refusing treatment. Treatment associated risks discussed . After this discussion and an acknowledgement of this understanding , made the decision for the current type of treatment. Follow up care appointments were put in place for follow up care within 7 days of discharge. Patient presents with a broader range of affect, and the absence of depressed mood, delusions, perceptual disturbances and or suicidal ideation. Overall, the patient responded well to inpatient treatment as evidenced by their report of strengthening of coping mechanisms , reduced distress, and more positive outlook on circumstances. Of note there was an improvement mood. The patient expressed readiness for discharge home. Safety precautions were put in place which included involving family to closely monitor for changes in mental state. In addition, implementing follow up care and safety plan. Family and patient instructed to immediately call 911 should any safety concerns arise. Patient advised of the dangerousness of combining medications with pain medications and/ or with alcohol and acknowledged this understanding. AIMS was performed and not significant for features of TD. The patient was advised of the 24 hour / 7 days a week availability of the emergency room and to call 911 in the event of becoming suicidal and/ or homicidal and for all other emergencies. The patient was informed of the contact information for [facility], [facility] Prevention [facility] Crisis [facility], National Suicide Prevention Lifeline, [facility], Alcoholics Anonymous, and [facility]. Depakote level was performed and Medications started included seroquel 200mg at night which was increased to 300mg at bedtime. His sleep improved to 8 hours a night. He was started on depakote 250mg BID and increased to 500mg BID. He was advised about the importance of followup and depakote levels. His brother was called for collateral and in agreement with discharge plan. He plans to move to a friends house of the weekend and return to work next week. Patient advised about risks of depakote including pancreatitis , liver injury and blood disorders Improvements in patient from the time of admission include: Improved affect, sleep and decrease in features of hypomania. Risk factors: Recent of friend, has affective illness. Protective factors: No prior history of suicide attempt. Has support system of friends and his brother. No history of service, currently no feelings of hopelessness, not in a occupation of social isolation, doesnt have multiple medical conditions, no family history of suicide, doesnt have access to firearms. Doesn t have command hallucinations and or psychotic features at this time. No history of alcohol abuse. Currently future orientated. Patient engaged in treatment and compliant with medication. Merits Inpatient Hospitalization: No Clear for Discharge: Adequate Clinical Respons Discharge Planning - Discharge Planning Discharge Plan: Outpatient Follow Up Outpatient Program: [facility] Recommendations for Continuing Care: Medication Management, Therapeutic Drug Levels Medications: Current Medications Acetaminophen (Tylenol Tab*) 650 mg PO Q4H PRN PRN Reason: for pain; or Temp >101 F Last Admin: 09/02/18 09:58 Dose: 650 mg Al Hydrox/Mg Hydrox/Simethicone (Maalox Plus*) 30 ml PO Q4H PRN PRN Reason: INDIGESTION Divalproex Sodium (Depakote Dr Tab(*)) 500 mg PO BID [facility] Last Admin: 09/02/18 09:14 Dose: 500 mg Haloperidol (Haldol Tab*) 5 mg PO Q6H PRN PRN Reason: AGITATION Last Admin: 09/02/18 03:24 Dose: 5 mg Hydroxyzine HCl (Atarax Tab*) 50 mg PO Q6H PRN PRN Reason: ANXIETY Last Admin: 09/02/18 09:14 Dose: 50 mg Quetiapine Fumarate (Seroquel Xr Tab*) 300 mg PO BEDTIME [facility] Last Admin: 09/01/18 20:09 Dose: 300 mg Discharge Planning: Prescriptions provided for discharge [x] Yes [] No Follow up care details as per social work arrangements. Patient response to discharge plan: [] eager for discharge [x] agreeable with discharge plan [] ambivalent about discharge [] disagrees with discharge today
--- NOTE | 2018-09-02 13:57 | CONS ---
PSYCHOLOGICAL REPORT: DATE OF CONSULT: 09/02/18 PROCEDURE CODE: [id number]. REASON FOR REFERRAL: Ac was tested for concerns related to suspicions of bipolar 1 disorder. TEST ADMINISTERED: Ac completed the [place] Multiphasic Personality Inventory-2 (MMPI-2), and was given feedback in individual conversation. RELEVANT HISTORY: Ac was brought in by his employer at the [employer] secondary to uncharacteristic behaviors and statements. He apparently had not slept for some 80 hours prior to his admission and was expressing some rather grandiose ideas including describing himself as "a white gangster." He reported taking 30 mg of Adderall daily in the past month that he got through diversion from a friend and also smokes cannabis daily. 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 He has been living with his parents, but has plans to move in with a friend after discharge. Ac was rather defended in discussing any depth about his difficulties with his parents or in his symptoms which were apparent prior to his discharge. Currently, he presents with good affect and is spontaneous in conversation and expresses gratitude for services here, but states that the medications have not been beneficial and he is not going to go to any outpatient mental health followup. He does not value such services and feels he could not afford them anyway. He is somewhat dismissive of efforts in regard to trying to provide educational interventions about what ray is, nor is he likely to continue to take prescribed medications at this point in time. TEST RESULTS: Ac provides remarkable spike on hypomania scale on this administration of the MMPI-2 with typical very low scoring occurring on the depression scale. This profile clearly supports a bipolar 1 diagnosis with minimal elevations occurring on psychoticism scales. He also has a very high score on FB scale where he attains a T score of greater than 120. Typically, this is thought to reflect to a "fake-bad profile," but in this instance Ac provides a clinical profile, which is clearly supportive of a bipolar 1 condition. IMPRESSION AND RECOMMENDATIONS: Feedback with Ac emphasized the importance of maintaining adequate sleep hygiene as that seems to be the precipitant for his difficulties prior to admission. While here, Ac has been dismissive of clinical programming, refusing to attend CBT programming. In individual conversation, he is cooperative and spontaneous in speech and interested in feedback, although at the end he is rather dismissive of any interest in engaging in followup services. He is anxious to return to his place of employment as he describes having bills to pay and is certainly future-oriented currently. 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 Diagnostic impression supports bipolar 1 disorder. [id number]/[facility] #: [id number] JAREK
== END 2018-09-02 13:35 | disposition home or self-care (01) | DRG 753 ==
LOC: ED 10:52 → BSU 15:21
PROVIDERS: ADMIT Psychiatry & Neurology Psychiatry; ATTEND Psychiatry & Neurology Psychiatry
DX: F31.81 Bipolar II disorder (principal); F12.90 Cannabis use, unspecified, uncomplicated; F15.10 Other stimulant abuse, uncomplicated; R94.31 Abnormal electrocardiogram [ECG] [EKG]; Z81.8 Family history of other mental and behavioral disorders; Z81.1 Family history of alcohol abuse and dependence
CPT/HCPCS: 36415; 80053; 80061; 80164; 80307; 80320; 80329; 81003; 83036; 84443; 85025; 93005; 93306; 96130; 99222; 99233; 99238; 99284; A9270-GY; G0480